=== PATIENT | female | born 1940 | race Caucasian/White ===

== ENCOUNTER 2020-04-25 06:20 | Outpatient (REF) | payer MEDICARE, OTHER, SELFPAY | END 2020-04-25 06:21 | disposition home or self-care (01) | LOC: HO.LAB 06:20 | PROVIDERS: Visit Provider Internal Medicine | DX: Z20.828 Contact with and (suspected) exposure to other viral communicable diseases (principal) | CPT/HCPCS: C9803; U0003 ==